=== PATIENT | male | born 1940 | race Caucasian/White ===

== ENCOUNTER 2017-10-18 06:56 | Day surgery (SDC) ==
[2017-10-18] MEDS ORDERED: LIDOCAINE 1% 20 ML MDV ID STA (07:30)
[2017-10-18] MEDS ORDERED: DIPRIVAN 20 ML VIAL IVP ONE (09:03)
[2017-10-18] MEDS ORDERED: LIDOCAINE HCL 2% LUER-JET ONE (09:03)
[2017-10-18] MEDS ORDERED: VERSED ONE (09:03)
[2017-10-18 10:29] VITALS: BP 112/56; TEMP 97.3
--- NOTE | 2017-10-18 14:42 | OP ---
INDICATIONS FOR PROCEDURE: 77 year old gentleman presents complaining dysphagia to solids foods. He has intermittent dysphagia. It has improved a little since starting the Omeprazole. MEDICATIONS: SEE ANESTHESIA NOTES. PROCEDURE: ENDOSCOPY, ESOPHAGEAL BIOPSY, RUSSIAN DILATATION. REPORT: The risks, benefits, alternatives and limitations were discussed in detail with the patient. Informed consent was obtained. After adequate sedation was achieved, the video endoscope was introduced in the posterior pharynx and esophagus under direct vision and easily advanced down to the second portion of the duodenum. I then slowly withdrew. The duodenal mucosa appeared unremarkable as did the duodenal bulb. The antrum body was relatively unremarkably. The scope was retroflexed to look at the cardia and fundus which was unremarkable. I could see a small hiatal hernia. The scope was anteflexed and withdrawn back through the esophagus. There is a 2cm hiatal hernia. At the GE junction there was slight irregularity. I biopsied this for histological review. There was an esophageal stricture causing mild lumen narrowing immediately above the GE junction. There was about 1-2mm above the GE junction. The remaining esophagus appeared unremarkably. I advised the scope back down the gastric lumen I placed the guidewire and withdrew the scope. Over the guidewire I passed a 54 [place] Dilator. I met minimal resistance. The patient tolerated the procedure well with stable vital signs and pulse oximetry throughout. IMPRESSION: 1. Distal esophageal stricture dilated as above 2. Small sliding 1-2cm hiatal hernia RECOMMENDATIONS: 1. Strict reflux precautions 2. Advised him to make sure he cuts and chews his food well 3. Await biopsy results to confirm benign nature 4. Will see him back in the office as needed. CC: Dr. Yazan WILSON
== END 2017-10-18 10:25 | disposition home or self-care (01) ==
LOC: SURG 06:56
PROVIDERS: ATTEND Internal Medicine Gastroenterology
DX: R13.19 Other dysphagia (principal); D13.0 Benign neoplasm of esophagus; K29.60 Other gastritis without bleeding; K44.9 Diaphragmatic hernia without obstruction or gangrene; K22.2 Esophageal obstruction